=== PATIENT | female | born 1975 | race Caucasian/White ===

== ENCOUNTER 2018-08-14 10:59 | Observation (INO) ==
[2018-08-14] MEDS ORDERED: ASPIRIN 325 MG TABLET PO STA (11:29)
[2018-08-14] MEDS ORDERED: MORPHINE 4 MG/1 ML VIAL IV STA (11:40)
[2018-08-14] MEDS ORDERED: NITROGLYCERIN 2% OINT 1 INCH/GM PACK TOP STA (11:40)
[2018-08-14] MEDS ORDERED: ONDANSETRON 4 MG/2 ML VIAL IV STA ×2 (11:40→13:45)
[2018-08-14 12:40] LABS: Basophils % 0.3 % (0.0-0.8); Eosinophils # 0.1 10*3/uL (0.0-0.87); Eosinophils % 0.4 % (0.00-10.9); Hematocrit 43.4 VOL% (35.7-47.0); Hemoglobin 14.7 GM/DL (12.0-16.0); Immature Granulocytes % 0.3 %; Immature Granulocytes Absolute 0.04 #; Lymphocytes # 2.2 10*3/uL (1.4-4.0); Lymphocytes % 18.5 % (21.3-54.2); Mean Corpuscular HGB Conc 33.9 GM/DL (32-36); Mean Corpuscular Hemoglobin 29 PG (27-34); Mean Corpuscular Volume 86.5 FL (87-102); Mean Platelet Volume 9.9 FL (9.6-12.0); Monocytes # 0.7 10*3/uL (0.11-0.8); Monocytes % 5.6 % (1.7-12.7); Neutrophils # 8.7 10*3/uL (1.4-7.4); Neutrophils % 74.9 % (38.7-73.9); Platelet Count 311 T/CUMM (130-400); Red Blood Count 5.02 MC/CUMM (3.8-5.5); Red Cell Distribution Width 11.7 % (9.3-17.3); White Blood Count 11.7 T/CUMM (4-12)
[2018-08-14 12:53] LABS: Apearance,Urine CLEAR (Clear); Bacteria,Urine Occasional /HPF (Few); Bilirubin,Urine Negative (Negative); Blood, Urine Small mg/dL (Negative); Glucose,Urine (UA) Negative (Negative); Ketones,Urine 5 mg/dL (Negative); Mucus,Urine Occasional /LPF (Occasional); Nitrite,Urine Negative (Negative); Protein,Urine Negative; Squamous Epithelial Cell,Urine Occasional /HPF (0-10); Urine Color Yellow (Yellow); Urine Specific Gravity 1.011 (1.001-1.035); Urine Urobilinogen < 2.0 EU/DL (0.2-1.0); WBC,Urine <1 /HPF (0-6)
[2018-08-14 12:54] LABS: PT Patient Result 10.5 SECS
[2018-08-14 12:58] LABS: Barbiturates Screen,Urine Negative (Negative); Benzodiazepines Screen,Urine Negative (Negative); Cannabinoid Screen,Urine Negative (Negative); Opiate Screen,Urine Positive (Negative); Phencyclidine Screen,Urine Negative (Negative)
[2018-08-14 13:01] LABS: Albumin 4.5 G/DL (3.4-5.0); Bilirubin,Total 0.5 MG/DL (0.2-1.0); Calcium 9.9 MG/DL (8.5-10.1); Osmolality,Calculated 272.7 MOS/KG (273-304); Potassium 3.7 MMOL/L (3.5-5.1); Total Protein 8.5 G/DL (6.4-8.3)
[2018-08-14] MEDS ORDERED: HYDROmorphone 2 MG/1 ML VIAL IV ONE (13:45)
[2018-08-14] MEDS ORDERED: DOCUSATE SODIUM 100 MG CAPSULE PO PRN (14:43)
[2018-08-14] MEDS ORDERED: hydrALAZINE 20 MG/1 ML VIAL IV PRN (16:25)
[2018-08-14] MEDS ORDERED: ALUM/MAG/SIMETH/LIDO VISC 1:1 30 ML BOTTLE PO ONE (16:35)
[2018-08-14] MEDS ORDERED: ENOXAPARIN 40 MG/0.4 ML SYRINGE SUBCUT SCH (17:00)
[2018-08-14] MEDS: ONDANSETRON 4 MG/2 ML VIAL IV PRN (17:17)
[2018-08-14] MEDS ORDERED: BUPRENORPHINE TRANSDERM SCH (18:00)
[2018-08-14] MEDS: amLODIPine 5 MG TABLET PO SCH (18:27)
[2018-08-14] MEDS: MORPHINE 4 MG/1 ML VIAL IV PRN ×2 (18:27→21:14)
[2018-08-14] MEDS: ASPIRIN CHEW 81 MG TABLET PO SCH (18:27)
[2018-08-14] MEDS: SODIUM CHLORIDE 0.45% 1,000 ML IV SCH (18:39)
[2018-08-14] MEDS: HydrOXYzine PAMOATE 50 MG CAPSULE PO PRN (21:17)
[2018-08-14] MEDS ORDERED: LORazepam 1 MG TABLET PO ONE (23:32)
[2018-08-14] MEDS: rOPINIRole 1 MG TABLET PO SCH (23:42)
[2018-08-15] MEDS: MORPHINE 4 MG/1 ML VIAL IV PRN ×2 (01:45→09:35)
[2018-08-15] MEDS: ONDANSETRON 4 MG/2 ML VIAL IV PRN (01:45)
[2018-08-15] MEDS ORDERED: MEPERIDINE 50 MG/1 ML VIAL IM ONE (06:02)
[2018-08-15] MEDS ORDERED: PROMETHAZINE 25 MG/1 ML VIAL IM ONE (06:02)
[2018-08-15 06:46] LABS: Basophils % 0.4 % (0.0-0.8); Eosinophils % 0.1 % (0.00-10.9); Hematocrit 43.2 VOL% (35.7-47.0); Hemoglobin 14.2 GM/DL (12.0-16.0); Immature Granulocytes % 0.5 %; Immature Granulocytes Absolute 0.04 #; Lymphocytes # 1.4 10*3/uL (1.4-4.0); Lymphocytes % 17.4 % (21.3-54.2); Mean Corpuscular HGB Conc 32.9 GM/DL (32-36); Mean Corpuscular Hemoglobin 28 PG (27-34); Mean Corpuscular Volume 85.7 FL (87-102); Mean Platelet Volume 10.1 FL (9.6-12.0); Monocytes # 0.7 10*3/uL (0.11-0.8); Monocytes % 8.3 % (1.7-12.7); Neutrophils % 73.3 % (38.7-73.9); Platelet Count 317 T/CUMM (130-400); Red Blood Count 5.04 MC/CUMM (3.8-5.5); Red Cell Distribution Width 11.7 % (9.3-17.3); White Blood Count 8.2 T/CUMM (4-12)
[2018-08-15 07:11] LABS: Calcium 9.4 MG/DL (8.5-10.1); Osmolality,Calculated 273.7 MOS/KG (273-304); Potassium 3.3 MMOL/L (3.5-5.1)
[2018-08-15 07:14] LABS: Risk Ratio 4.33; VLDL CHOLESTEROL 40.8 MG/DL
[2018-08-15] MEDS ORDERED: methylPREDNISolone ACETATE 40 MG/1 ML VIAL MISC INJ ONE (11:30)
[2018-08-15] MEDS ORDERED: BUPIVACAINE 0.5% 50 ML VIAL MISC INJ ONE (11:30)
[2018-08-15] MEDS: buPROPion XL 150 MG TABLET PO SCH (11:57)
[2018-08-15] MEDS: amLODIPine 5 MG TABLET PO SCH (11:58)
[2018-08-15] MEDS: SODIUM CHLORIDE 0.45% 1,000 ML IV SCH ×2 (11:58→22:19)
[2018-08-15] MEDS: ASPIRIN CHEW 81 MG TABLET PO SCH (11:58)
[2018-08-15] MEDS: PANTOPRAZOLE 40 MG TABLET PO SCH (11:58)
[2018-08-15] MEDS: PROMETHAZINE 25 MG/1 ML VIAL IM PRN ×2 (11:59→17:20)
[2018-08-15] MEDS ORDERED: KETOROLAC 30 MG/1 ML VIAL IM ONE (12:30)
[2018-08-15] MEDS: POTASSIUM CHLORIDE 20 MEQ TABLET PO PRN ×3 (16:23→20:39)
[2018-08-15] MEDS: OMEGA 3 ACID ETHYL ESTERS 1 GM CAPSULE PO SCH (20:39)
[2018-08-15] MEDS: rOPINIRole 1 MG TABLET PO SCH (20:39)
[2018-08-15] MEDS: ACETAMINOPHEN 325 MG TABLET PO PRN (20:39)
[2018-08-15] MEDS: tiZANidine 4 MG TABLET PO SCH (20:40)
[2018-08-15] MEDS: HydrOXYzine PAMOATE 50 MG CAPSULE PO PRN (20:51)
[2018-08-16] MEDS: PROMETHAZINE 25 MG/1 ML VIAL IM PRN ×3 (02:28→21:57)
[2018-08-16] MEDS: ONDANSETRON 4 MG/2 ML VIAL IV PRN ×2 (02:32→10:13)
[2018-08-16 05:45] LABS: Basophils % 0.3 % (0.0-0.8); Eosinophils # 0.1 10*3/uL (0.0-0.87); Eosinophils % 1.2 % (0.00-10.9); Hematocrit 39.4 VOL% (35.7-47.0); Immature Granulocytes % 0.3 %; Immature Granulocytes Absolute 0.02 #; Lymphocytes % 29.2 % (21.3-54.2); Mean Corpuscular Hemoglobin 29 PG (27-34); Mean Corpuscular Volume 87.8 FL (87-102); Mean Platelet Volume 9.9 FL (9.6-12.0); Monocytes # 0.6 10*3/uL (0.11-0.8); Monocytes % 8.4 % (1.7-12.7); Neutrophils # 4.1 10*3/uL (1.4-7.4); Neutrophils % 60.6 % (38.7-73.9); Platelet Count 252 T/CUMM (130-400); Red Blood Count 4.49 MC/CUMM (3.8-5.5); Red Cell Distribution Width 11.7 % (9.3-17.3); White Blood Count 6.7 T/CUMM (4-12)
[2018-08-16 05:57] LABS: Calcium 8.8 MG/DL (8.5-10.1); Osmolality,Calculated 275.5 MOS/KG (273-304); Potassium 3.9 MMOL/L (3.5-5.1)
[2018-08-16] MEDS: OMEGA 3 ACID ETHYL ESTERS 1 GM CAPSULE PO SCH ×3 (09:26→20:58)
[2018-08-16] MEDS: ASPIRIN CHEW 81 MG TABLET PO SCH ×2 (09:26→11:57)
[2018-08-16] MEDS: amLODIPine 5 MG TABLET PO SCH ×2 (09:27→11:56)
[2018-08-16] MEDS: buPROPion XL 150 MG TABLET PO SCH ×2 (09:27→11:56)
[2018-08-16] MEDS: PANTOPRAZOLE 40 MG TABLET PO SCH ×3 (09:27→20:58)
[2018-08-16] MEDS ORDERED: ONDANSETRON 4 MG/2 ML VIAL ONE (10:11)
[2018-08-16] MEDS ORDERED: LIDOCAINE 100 MG/5 ML SYRINGE ONE (11:11)
[2018-08-16] MEDS ORDERED: PROPOFOL 200 MG/20 ML VIAL IV ONE (11:11)
[2018-08-16] MEDS: ACETAMINOPHEN 325 MG TABLET PO PRN (11:56)
[2018-08-16] MEDS: SODIUM CHLORIDE 0.45% 1,000 ML IV SCH ×2 (13:08→22:03)
[2018-08-16] MEDS: MORPHINE 4 MG/1 ML VIAL IV PRN ×2 (13:42→21:57)
[2018-08-16] MEDS: rOPINIRole 1 MG TABLET PO SCH (20:58)
[2018-08-16] MEDS: tiZANidine 4 MG TABLET PO SCH (20:58)
[2018-08-16] MEDS: HydrOXYzine PAMOATE 50 MG CAPSULE PO PRN (21:56)
[2018-08-17 05:51] LABS: Basophils % 0.5 % (0.0-0.8); Eosinophils # 0.1 10*3/uL (0.0-0.87); Eosinophils % 1.7 % (0.00-10.9); Hemoglobin 12.5 GM/DL (12.0-16.0); Immature Granulocytes % 0.3 %; Immature Granulocytes Absolute 0.02 #; Lymphocytes # 1.8 10*3/uL (1.4-4.0); Lymphocytes % 27.3 % (21.3-54.2); Mean Corpuscular HGB Conc 32.1 GM/DL (32-36); Mean Corpuscular Hemoglobin 29 PG (27-34); Mean Corpuscular Volume 89.4 FL (87-102); Mean Platelet Volume 10.1 FL (9.6-12.0); Monocytes # 0.5 10*3/uL (0.11-0.8); Monocytes % 7.7 % (1.7-12.7); Neutrophils # 4.1 10*3/uL (1.4-7.4); Neutrophils % 62.5 % (38.7-73.9); Platelet Count 237 T/CUMM (130-400); Red Blood Count 4.36 MC/CUMM (3.8-5.5); Red Cell Distribution Width 11.9 % (9.3-17.3); White Blood Count 6.6 T/CUMM (4-12)
[2018-08-17 06:03] LABS: Calcium 8.3 MG/DL (8.5-10.1); Osmolality,Calculated 277.4 MOS/KG (273-304); Potassium 3.9 MMOL/L (3.5-5.1)
[2018-08-17] MEDS: PROMETHAZINE 25 MG/1 ML VIAL IM PRN (07:26)
[2018-08-17] MEDS: MORPHINE 4 MG/1 ML VIAL IV PRN (07:26)
[2018-08-17 07:57] VITALS: BP 117/77
[2018-08-17] MEDS: buPROPion XL 150 MG TABLET PO SCH (09:05)
[2018-08-17] MEDS: ASPIRIN CHEW 81 MG TABLET PO SCH (09:05)
[2018-08-17] MEDS: PANTOPRAZOLE 40 MG TABLET PO SCH (09:05)
[2018-08-17] MEDS: amLODIPine 5 MG TABLET PO SCH (09:05)
[2018-08-17] MEDS: OMEGA 3 ACID ETHYL ESTERS 1 GM CAPSULE PO SCH (09:05)
== END 2018-08-17 11:32 | disposition home or self-care (01) ==
LOC: N.ED 10:59 → N.EDINP 10:59 → N.2W 15:22 → N.TELEN 18:07
PROVIDERS: ADMIT Internal Medicine; ATTEND Internal Medicine